=== PATIENT | male | born 1975 | race Caucasian/White ===

== ENCOUNTER 2020-02-12 20:14 | Emergency (ER) | payer BC ==
[~2020-02-12] VITALS: Ht 188 cm; Wt 84.1 kg
[2020-02-12 20:16] VITALS: BP 129/76
== END 2020-02-12 23:02 | disposition home or self-care (01) ==
LOC: ER 20:14
DX: S61.011A Laceration without foreign body of right thumb without damage to nail, initial encounter (principal); W26.8XXA Contact with other sharp object(s), not elsewhere classified, initial encounter; Y93.61 Activity, american tackle football; Y92.89 Other specified places as the place of occurrence of the external cause; Y99.8 Other external cause status
CPT/HCPCS: 12001; 99282